=== PATIENT | female | born 1945 | race Caucasian/White ===

== ENCOUNTER 2020-01-17 17:26 | Inpatient (IN) | payer OTHER ==
[2020-01-17] MEDS ORDERED: Lorazepam 2 MG/ML VIAL SLOW IVP PRN ×3 (19:06→19:10)
[2020-01-17] MEDS ORDERED: Acetaminophen 650 MG Suppository PR PRN (19:06)
[2020-01-17] MEDS ORDERED: Acetaminophen 325 MG TAB PO PRN (19:06)
[2020-01-17] MEDS ORDERED: Hyoscyamine Sulfate SL 0.125 mg Tablet SL PRN (19:06)
[2020-01-17] MEDS ORDERED: Senokot 8.6 MG TAB PO PRN (19:06)
[2020-01-17] MEDS ORDERED: Haloperidol Lactate 5 MG/ML VIAL SLOW IVP PRN (19:06)
[2020-01-17] MEDS ORDERED: Scopolamine 1.5 mg/72 hour Patch TOP PRN (19:06)
[2020-01-17] MEDS ORDERED: Ondansetron PF 4 MG/2 ML Vial IVP PRN (19:06)
[2020-01-17] MEDS ORDERED: Bisacodyl 5 MG TAB PO PRN (19:09)
[2020-01-17] MEDS ORDERED: Morphine 4 MG/ML VIAL SLOW IVP PRN (19:10)
[2020-01-17] MEDS: Morphine 4 MG/ML VIAL SLOW IVP SCH ×2 (20:23→22:24)
[2020-01-17] MEDS: Lorazepam 2 MG/ML VIAL SLOW IVP SCH (20:25)
[2020-01-17 20:29] VITALS: BP 104/69; TEMP 97.6
[2020-01-17] MEDS ORDERED: Gabapentin 100 MG CAP PO SCH (21:00)
[2020-01-18] MEDS: Morphine 4 MG/ML VIAL SLOW IVP SCH ×4 (01:00→05:49)
[2020-01-18] MEDS: Lorazepam 2 MG/ML VIAL SLOW IVP SCH ×2 (01:11→04:26)
[2020-01-18 03:48] VITALS: BMI 35.1
[2020-01-18] MEDS ORDERED: Polyethylene Glycol 3350 17 GM Packet PO SCH (09:00)
--- NOTE | 2020-01-22 11:45 | DIS ---
DATE OF ADMISSION: 01/17/2020 DATE OF DISCHARGE: 01/18/2020 DISCHARGE DATE: 01/17. ADMIT DIAGNOSES: End-stage renal disease stage 5, failure of hemodialysis, congestive heart failure with preserved ejection fraction, history of hypothyroidism, recent history of transcatheter aortic valve replacement procedure, history of pacemaker, history of renal mass, history of macrocytic anemia from chronic anemia and anemia of chronic disease, recent possible shingles outbreak. HOSPITAL COURSE: The patient was admitted from hemodialysis due to intolerance of the dialysis and development of significant severe symptomatic hypotension. Once she was admitted in ICU, given pressors, treated aggressively with IV hydration lines and some port access. She was not responding to those measures. Family agreed. Her is in the hospital as well and agreed that she would prefer to just go on and not have any heroic measures and further carried out, so she was transferred over to inpatient hospice service. She on the morning of the at 0730 hours peacefully. Due to COVID situation, no other family was present. Her is in the hospital, was unable to be in the room with her. Job ID: [id number]
--- NOTE | 2020-02-08 02:51 | HP ---
This is an admit into the [facility] Hospice Service. ADMITTING DIAGNOSES: End-stage renal disease, heart failure with preserved ejection fraction, status post transcatheter aortic valve replacement procedure with history of pacemaker as well as congestive heart failure. The patient had been in the hospital at both [place] and [facility]. The patient came into the hospital after going through her hemodialysis and had developed symptomatic hypotension and was admitted into the ICU at [place], was started on pressors. She did not respond well to that, her is in the hospital as well. They decided that she would prefer to stop with aggressive treatment, went on to hospice but she was too weak to be able to go home being in the hospital concurrently. She would best to be put in as inpatient hospice. PHYSICAL EXAMINATION: VITAL SIGNS: Her vital signs on admission, BP is in the 80s systolic with a pulse in the low 100s. She is afebrile, minimally responsive. LUNGS: Bibasilar rales. HEART: Has S3 gallop, but no murmurs appreciated. EXTREMITIES: Palpable pulses in all 4 extremities with thready. ABDOMEN: Soft and nontender. ASSESSMENT: End-stage renal disease, congestive heart failure, aortic valve repair recently with transcatheter aortic valve replacement procedure, now being admitted onto the inpatient hospice service. Job ID: [id number]
== END 2020-01-18 10:43 | DRG 951 ==
LOC: T4-B 17:26
PROVIDERS: ADMIT Family Medicine; ATTEND Family Medicine
DX: Z51.5 Encounter for palliative care (principal); N18.6 End stage renal disease; E11.22 Type 2 diabetes mellitus with diabetic chronic kidney disease; E03.9 Hypothyroidism, unspecified; I95.9 Hypotension, unspecified; Z99.2 Dependence on renal dialysis; Z95.2 Presence of prosthetic heart valve; Z95.0 Presence of cardiac pacemaker; Z79.4 Long term (current) use of insulin
CPT/HCPCS: J2060; J2270